=== PATIENT | female | born 2000 | race African-American/Black ===

== ENCOUNTER 2020-02-09 09:15 | Emergency (ER) | payer MEDICAID ==
[~2020-02-09] VITALS: Ht 165.1 cm; Wt 81.6 kg
[2020-02-09] MEDS ORDERED: SODIUM CHLORIDE 0.9% 1,000 ML IV ONE (09:55)
[2020-02-09] MEDS ORDERED: ONDANSETRON HCL 4MG/2ML INJ IV STA (09:55)
[2020-02-09 10:23] LABS: BASOPHILS % 0.5 % (0.0-2.0); CHLORIDE 106 mEq/L (98-107); EOSINOPHILS % 0.8 % (0.0-5.0); HEMATOCRIT. 36.3 % (36.0-48.0); HEMOGLOBIN. 11.9 g/dL (12.0-16.0); LYMPHOCYTES % 18.6 % (20.0-50.0); MEAN CORPUSCULAR HEMOGLOBIN 26.7 pg (28.0-32.0); MEAN CORPUSCULAR VOLUME 81.3 fL (81.0-99.0); MEAN PLATELET VOLUME 8.7 fl (7.4-10.4); MONOCYTES % 8.9 % (2.0-8.0); NEUTROPHILS % 71.2 % (40.0-76.0); PLATELET 205 x1000/uL (130-400); RED BLOOD CELL COUNT 4.47 mill/uL (4.2-5.4); RED CELL DISTRIBUTION WIDTH 12.8 % (11.6-14.6)
[2020-02-09 11:18] LABS: HCG SCREEN NEGATIVE
[2020-02-09 11:40] VITALS: BP 117/77
== END 2020-02-09 11:58 | disposition home or self-care (01) ==
LOC: ER 09:15
DX: E86.0 Dehydration (principal)
CPT/HCPCS: 36415; 80053; 81025; 84703; 85025; 93005; 96361; 96374; 99284; J2405; J7030